=== PATIENT | female | born 1980 | race American Indian/Alaskan Native ===

== ENCOUNTER 2018-09-01 12:39 | Emergency (ER) | payer SELFPAY ==
[2018-09-01 12:54] VITALS: BP 147/92
--- NOTE | 2018-09-01 12:59 | Emergency Department Report ---
Chief Complaint: Pain General Stated Complaint: EAR STOPPED UP Time Seen by Provider: 09/01/18 12:51 - HPI History of Present Illness: This is a 37 y.o. F. that presents to the ER with right ear pain and muffled hearing x 6 days. Patient states she was feeling irritation to right ear prior to flying but after getting off the plan symptoms increased. Patient is visiting family from [place]. Patient went to the pharmacy and told to use debrox which she is using with minimal improvement of symptoms. - Exam Vital Signs: Vital Signs 09/01/18 12:51 Temperature 98.2 F Pulse Rate 68 Respiratory 18 Rate Blood Pressure 147/92 [Left] O2 Sat by Pulse 98 Oximetry MSE screening note: Focused history and physical exam performed. Due to findings the following was ordered: ACC for further evaluation ED Disposition for MSE Condition: Stable
[2018-09-01] MEDS ORDERED: HYDROGEN PEROXIDE TP ONE (14:25)
--- NOTE | 2018-09-01 14:28 | Emergency Department Report ---
ED ENT HPI - General Chief complaint: Pain General Stated complaint: EAR STOPPED UP Time Seen by Provider: 09/01/18 12:51 Source: patient Mode of arrival: Ambulatory Limitations: No Limitations - History of Present Illness Initial comments: This is a 37-year-old female presents to ED complaining of ear ache in and feeling stuffed up times about a week. Patient states that she was told she could use Debrox which she has been using [id number] with no relief. She states that she is unable to hear very well at the right ear. Patient states she is visiting from [place]. She denies any trauma to the ear foreign object in ear ED Dental HPI - General Chief complaint: Pain General Stated complaint: EAR STOPPED UP Time Seen by Provider: 09/01/18 12:51 Source: patient Mode of arrival: Ambulatory Limitations: No Limitations ED Review of Systems ROS: Stated complaint: EAR STOPPED UP Other details as noted in HPI Comment: All other systems reviewed and negative ED Past Medical Hx - Past Medical History Previous Medical History?: No Hx Hypertension: No Hx CVA: No Hx Heart Attack/AMI: No Hx Congestive Heart Failure: No Hx Diabetes: No Hx Deep Vein Thrombosis: No Hx Pulmonary Embolism: No Hx GERD: No Hx Liver Disease: No Hx Renal Disease: No Hx of Cancer: No Hx Sickle Cell Disease: No Hx Arthritis: No Hx Headaches / Migraines: No Hx Seizures: No Hx Kidney Stones: No Hx Psychiatric Treatment: No Hx Asthma: No Hx COPD: No Hx Tuberculosis: No Hx Dementia: No Hx HIV: No - Surgical History Past Surgical History?: No Hx Coronary Stent: No Hx Open Heart Surgery: No Hx Pacemaker: No Hx Internal Defibrillator: No Hx Cholecystectomy: No Hx Appendectomy: No Hx Breast Surgery: No - Social History Smoking Status: Never Smoker Substance Use Type: None ED Physical Exam - General Limitations: No Limitations General appearance: alert, in no apparent distress - Head Head exam: Present: atraumatic, normocephalic - Eye Eye exam: Present: normal appearance - ENT ENT exam: Present: mucous membranes moist - Expanded ENT Exam Expanded TM/Canal exam: Cerumen Impaction: Right TM, Left TM Mouth exam: Present: normal external inspection Teeth exam: Present: normal inspection Throat exam: Positive: normal inspection - Neck Neck exam: Present: normal inspection - Respiratory Respiratory exam: Present: normal lung sounds bilaterally. Absent: respiratory distress - Cardiovascular Cardiovascular Exam: Present: regular rate, normal rhythm. Absent: systolic murmur, diastolic murmur, rubs, gallop - GI/Abdominal GI/Abdominal exam: Present: soft, normal bowel sounds - Extremities Exam Extremities exam: Present: normal inspection - Back Exam Back exam: Present: normal inspection - Neurological Exam Neurological exam: Present: alert, oriented X3 - Psychiatric Psychiatric exam: Present: normal affect, normal mood - Skin Skin exam: Present: warm, dry, intact, normal color. Absent: rash ED Course Vital Signs 09/01/18 12:51 Temperature 98.2 F Pulse Rate 68 Respiratory 18 Rate Blood Pressure 147/92 [Left] O2 Sat by Pulse 98 Oximetry ED Medical Decision Making - Medical Decision Making 37 year female presents with cerumen impaction. Bilateral ears are irrigated with normal saline. Patient tolerated procedure well. Ear exam after irrigation within normal limits, no tympanic membrane rupture, swelling or erythema. Discussed follow-up with primary care physician. Vital signs are normal patient is in no acute distress. Patient reports feeling better after irrigation performed. Discussed with the patient that she may continue using her Debrox earwax removal which she has at home. Hearing is intact bilaterally. Critical care attestation.: If time is entered above; I have spent that time in minutes in the direct care of this critically ill patient, excluding procedure time. ED Disposition Clinical Impression: Impacted cerumen, bilateral Disposition: DC-01 TO HOME OR SELFCARE Is pt being admited?: No Does the pt Need Aspirin: No Condition: Stable Instructions: Cerumen Impaction (ED) Additional Instructions: Make sure to follow up with the primary care physician as discussed. Take all your medications as you've been prescribed. If you have any worsening symptoms or develop new symptoms please return to ED immediately. Referrals: TANK WEISS MD [Primary Care Provider] - 3-5 Days Forms: Accompanied Note, Work/School Release Form(ED) Time of Disposition: 15:56
== END 2018-09-01 16:18 | disposition home or self-care (01) ==
LOC: ED 12:39
DX: H61.23 Impacted cerumen, bilateral (principal)